=== PATIENT | female | born 1980 | race Caucasian/White ===

== ENCOUNTER → 2022-01-24 | Outpatient (CLI) | payer MEDICARE, OTHER ==
[~2022-01-24] MED LIST: BENAZEPRIL-HCT1 EACH PO; CLONIDINE HCL0.1 MG PO; IBUPROFEN800 MG PO; INDERAL TAB 1010 MG PO; KLONOPIN TAB 00.5 MG PO; NEURONTIN600 MG PO; PAXIL20 MG PO; VENTOLIN HFA 66.7 GM INH
== END ==
LOC: EMI 14:47
DX: M54.2 Cervicalgia (principal)
CPT/HCPCS: 72141